=== PATIENT | male | born 1955 | race Caucasian/White ===

== ENCOUNTER 2023-09-06 01:34 | Day surgery (SDC) | payer OTHER, SELFPAY ==
[2023-09-03 13:48] VITALS: BMI 30.9
--- NOTE | 2023-09-03 13:59 | PC.NURSE ---
Report to the Outpatient Waiting Room, entrance under the green pavilion located off [facility], at time _1030__ on date _09-06-23_. Planned Procedure Time: ___1230 . Time changes happen often and if your time is changed the preop area will call you the afternoon before. - You and your visitor will be asked to self-screen and do not enter if you have any COVID symptoms. - A mask is optional within the hospital at this time. Patients may have clear liquids (water, carbonated beverages, clear teas, apple juice) until 3 hours prior to surgery with a maximum of 20 ounces. stop at 930am - No food from midnight until time of surgery Take the following medications with a SIP of water the morning of surgery: ___per patient will not plan to take anything morning of surgery DO NOT STOP ANY OF YOUR OTHER PRESCRIPTION MEDICATIONS PRIOR TO SURGERY ?EXCEPT THE FOLLOWING Medications to discontinue per physician NA Date to take last dose Please no make-up, nail cost[place] r[place], hairspray, perfume, deodorant, or body powder the day of surgery. No jewelry (including any body piercings) or valuables the day of surgery, leave them at home. Please take a shower or bath the night before, or the morning of, surgery with an antibacterial soap. Wear comfortable, loose fitting clothing. Children are encouraged to wear pajamas. - Jewelry must be removed prior to entering the operating room. Rings and piercings that are not removed may be cut off. - The hospital will not accept responsibility for valuables. - Please leave all valuables, including medications, at home the day of surgery. If you are going home after surgery, a licensed goat driver must drive you home. - NO public transportation without another adult if you receive anesthesia. - We recommend that an adult stay with you for 24 hours following discharge. - We also recommend that you do not drive, make important decision, drink alcoholic beverages, or take any drugs that were not prescribed by your health care provider for at least 24 hours after your discharge time. For Pediatric surgeries, we recommend two adults accompany the child home. Follow any additional instructions given to you from your surgeon. If you or anyone in your household have experienced Covid symptoms in the past week, please notify your surgeon or the nurse liaison at the phone number below for possible testing. Telephone instructions given to patient Gennaro and asked if any additional questions and then verbalized understanding. Patient advised to call surgeon office or pre surgery nurse liaison [phone] if any additional questions.
--- NOTE | 2023-09-05 07:29 | P.HP_ITS ---
History of Present Illness History of Present Illness Consent: Risks, benefits, and alternatives have been discussed and questions answered. Patient agrees to proceed with procedure. Chief complaint: left hydrocele Narrative: Gennaro Johns is a 67 year old male who has a history of urolithiasis. Several months ago he presented with left scrotal swelling consistent with left hydrocele. That has progressed to the point that he is now opting for left hydrocelectomy. We discussed alternative treatments including in office aspiration. He is aware of the risk of a hydrocelectomy including, but not limited to, scrotal hematoma and recurrent scrotal swelling for various reasons. Review of Systems Review of Systems: All systems reviewed & are unremarkable except as noted in HPI and below PMFSH Past Medical History Medical History (Updated 03/20/23 @ 08:56 by Fran Moreno MD) Ganglion cyst Surgical History Surgical History (Updated 06/27/22 @ 09:54 by Marii Michelle MA) H/O inguinal hernia repair History of surgical removal of ganglion cyst Rt wrist Social History Social History (Updated 09/05/21 @ 10:38 by Benjamin Ramos MA) Smoking status: Former smoker Second hand tobacco smoke exposure: No Alcohol intake: current Drinks per week: 18 Substance use: never Substance use type: does not use Living arrangements: with family Additional living arrangements comments: with sp Occupation/Education: retired Gender identity (if verbalized by the patient): Male Sexual Orientation (if Verbalized by the Patient): Straight or Heterosexual Spiritual care concerns: No Agree to blood products: Yes Meds Home Medications and Allergies Home Medications Medication Instructions Recorded Confirmed Type valacyclovir 500 mg tablet 500 mg PO DAILY #90 tabs 09/21/22 09/03/23 Rx sildenafil 100 mg tablet 100 mg PO DAILY PRN sexual 12/14/22 09/03/23 Rx activity #18 tabs lisinopril 40 mg tablet See Rx Instructions .Route 06/07/23 09/03/23 Rx .COMPLEX #90 tabs rosuvastatin 10 mg tablet See Rx Instructions .Route 06/07/23 09/03/23 Rx .COMPLEX #90 tabs Allergies Allergy/AdvReac Type Severity Reaction Status Date / Time No Known Allergies Allergy Unknown Verified 09/03/23 13:45 Exam Const: General: no acute distress Resp: Effort & Inspection: normal respiratory effort GI: Inspection: non-distended GI Palp: No abdominal tenderness and No Guarding due to palpation present (GI) Auscultation: normal bowel sounds : Scrotum: Hydrocele present ( Moderate, left) Assessment and Plan Assessment and plan (1) Left hydrocele: Code(s): N43.3 - Hydrocele, unspecified Status: Acute Assessment and Plan: * Left hydrocelectomy
[2023-09-06] VITALS (8 sets, daily range): BP systolic 146–178; BP diastolic 65–99; PULSE 54–88; RESP 12–20; TEMP 36.3–36.4; O2SAT 98–100
--- NOTE | 2023-09-06 06:26 | WPDHPUPDATE1 ---
History and Physical Update Update Date/Time: 09/06/23 06:26 History and Physical has been reviewed, including an updated exam of the patient. There are NO changes in the patient's condition. Risks, benefits, and alternatives have been discussed and questions answered. Patient agrees to proceed with procedure.
--- NOTE | 2023-09-06 10:42 | ECG_ITS ---
Measurements Intervals [place] Rate: 64 P: -4 CO: 174 QRS: 11 QRSD: 112 T: 36 QT: 440 QTc: 454 Interpretive Statements SINUS RHYTHM INTRAVENTRICULAR CONDUCTION DELAY BORDERLINE ECG NO PREVIOUS ECG AVAILABLE FOR COMPARISON Electronically Signed On 09-06-2023 11:46:32 [employer]ER by Gurvinder Ferreira D.O.
[2023-09-06] MEDS: LACTATED RINGERS 1,000 ML 30 ML IV CONT ×2 (11:05→14:44)
--- NOTE | 2023-09-06 12:01 | WPDANESEPPF ---
Anes - Initial Pre Proc Eval Procedure: Operation Date: 09/06/23 12:30 Proposed Procedures p Left Hydrocelectomy - Jorge Livingston MD Date/Time: 09/06/23 12:01 Surgeon: Jorge Livingston MD Pre Op Diagnosis: left hydrocele Patient Data Age: 67 Gender: M Height: 1.78 m Weight: 103.6 kg Last Vital Signs Temp 36.4 C 09/06/23 11:13 Pulse 72 09/06/23 11:13 Resp 16 09/06/23 11:13 BP 175/88 H 09/06/23 11:13 Pulse Ox 99 09/06/23 11:13 O2 Del Method Room Air 09/06/23 11:13 Allergies Allergy/AdvReac Type Severity Reaction Status Date / Time No Known Allergies Allergy Unknown Verified 09/06/23 10:50 Home Medications Medication Instructions Recorded Confirmed Type valacyclovir 500 mg tablet 500 mg PO DAILY #90 tabs 09/21/22 09/06/23 Rx sildenafil 100 mg tablet 100 mg PO DAILY PRN sexual 12/14/22 09/03/23 Rx activity #18 tabs lisinopril 40 mg tablet See Rx Instructions .Route 06/07/23 09/06/23 Rx .COMPLEX #90 tabs rosuvastatin 10 mg tablet See Rx Instructions .Route 06/07/23 09/06/23 Rx .COMPLEX #90 tabs Patient hx anesthesia problems: none Family hx anesthesia problems: none Results Review: All pre-operative results and documents have been reviewed as part of the pre-operative evaluation. [facility] Past Medical History Medical History Ganglion cyst Surgical History Surgical History H/O inguinal hernia repair History of surgical removal of ganglion cyst Rt wrist Social History Social History Smoking status: Former smoker Second hand tobacco smoke exposure: No Alcohol intake: current Drinks per week: 18 Substance use: never Substance use type: does not use Living arrangements: with family Additional living arrangements comments: with sp Occupation/Education: retired Gender identity (if verbalized by the patient): Male Sexual Orientation (if Verbalized by the Patient): Straight or Heterosexual Spiritual care concerns: No Agree to blood products: Yes Anes - Eval Final PreProcedure Day of Procedure 09/06/23 12:01 Patient weight: overweight Heart: regular rate and rhythm Lungs: clear to auscultation Airway: Mallampati scale class II Neurological: alert and oriented Last oral intake: >/= 8 hours ASA classification: II Emergent: no Anesthetic plan: proceed Anesthesia type and monitoring: general LMA and standard monitoring Results Review: All pre-operative results and documents have been reviewed as part of the pre-operative evaluation. Informed Consent: The patient's anesthetic plan and its attendant risks and benefits were discussed with the patient/family/POA. Questions were solicited and answers provided to the satisfaction of the patient/family/POA.
--- NOTE | 2023-09-06 12:57 | SUR.PREOP ---
1240- Updated pt on delay in Dr. Livingston room.
[2023-09-06] MEDS: ceFAZolin 2 GM/D5W 50 ML 2 GM/50 ML BAG IVPB (13:56)
[2023-09-06] MEDS: LIDO 1%/EPINEPHRINE 1:100,000 50 ML VIAL 30 ML INFILTRATE (14:28)
--- NOTE | 2023-09-06 14:35 | W.PM.PROC2 ---
Procedure Note - Detailed Date of Procedure 09/06/23 Pre-op Diagnosis Left hydrocele Post-op Diagnosis Same Procedure Performed Left hydrocelectomy Surgeon Jorge Livingston MD Anesthesia General Description of Procedure The patient was brought to the operative suite where he was prepped and draped in routine sterile fashion while in a supine position after the uneventful induction of a general LMA anesthetic. An incision was made in the median raphe of the scrotum and dissection was carried into the left tunica vaginalis. Clear, straw-colored fluid was drained. The testicle was examined and found to be both visibly and palpably normal. The tunica was everted in a bottle-neck fashion using a running 4-0 chromic. The testicle was restore returned to an orthotopic positioned. The dartos muscle was closed with a running 4-0 chromic and the skin was likewise closed with a running 4-0 chromic. Estimated blood loss throughout this procedure was 5cc . Patient tolerated the procedure well and was taken to the recovery room in good condition. Drains No Packing No Pathology None sent Complications No immediate complications
[2023-09-06] MEDS: fentaNYL CITRATE INJ (*CRX) 100 MCG/2 ML VIAL 25 MCG IV PUSH ×3 (15:10→15:20)
== END 2023-09-06 16:22 | disposition home or self-care (01) ==
PROVIDERS: PCP Family Medicine Adolescent Medicine; Visit Provider Urology
PROC: (CPT 55040; principal; 2023-09-06 12:30)
DX: N43.3 Hydrocele, unspecified (principal); Z87.891 Personal history of nicotine dependence
CPT/HCPCS: 55060; 93005; J0690; J1100; J2250; J2405; J2704; J3010; J7120

== ENCOUNTER 2024-03-04 05:50 | Day surgery (SDC) | payer OTHER, SELFPAY ==
[2024-01-08 13:42] VITALS: BMI 33.0
--- NOTE | 2024-02-29 14:55 | PM.HPGS ---
History of Present Illness History of Present Illness Consent: Risks, benefits, and alternatives have been discussed and questions answered. Patient agrees to proceed with procedure. Chief complaint: Neoplasm Screening Narrative: Gennaro Monk is a 68 year old male who is referred for colon cancer screening. Review of Systems Review of Systems: All systems reviewed & are unremarkable except as noted in HPI and below PMFSH Past Medical History Medical History Ganglion cyst Left hydrocele Surgical History Surgical History H/O inguinal hernia repair History of hydrocelectomy (08/2023) History of surgical removal of ganglion cyst Rt wrist Social History Social History Smoking status: Former smoker Second hand tobacco smoke exposure: No Alcohol intake: current Drinks per week: 18 Alcohol use details: 3 per day Substance use: never Substance use type: does not use Living arrangements: with family Additional living arrangements comments: with sp Occupation/Education: retired Gender identity (if verbalized by the patient): Male Sexual Orientation (if Verbalized by the Patient): Straight or Heterosexual Spiritual care concerns: No Agree to blood products: Yes Meds Home Medications and Allergies Home Medications Medication Instructions Recorded Confirmed Type sildenafil 100 mg tablet 100 mg PO DAILY PRN sexual 12/14/22 03/04/24 Rx activity #18 tabs lisinopril 40 mg tablet See Rx Instructions .Route 06/07/23 03/04/24 Rx .COMPLEX #90 tabs rosuvastatin 10 mg tablet See Rx Instructions .Route 06/07/23 03/04/24 Rx .COMPLEX #90 tabs valacyclovir 500 mg tablet 500 mg PO DAILY PRN prn 01/01/24 01/01/24 History multivitamin 1 tablet PO DAILY 02/19/24 03/04/24 History Allergies Allergy/AdvReac Type Severity Reaction Status Date / Time No Known Allergies Allergy Unknown Verified 03/04/24 06:21 Exam Resp: Auscultation: clear to auscultation bilaterally Cardio: Rate: regular rate Rhythm: regular rhythm GI: GI Palp: Yes Soft to palpation and No Tenderness to palpation present (GI) Assessment and Plan Assessment and plan (1) Colon cancer screening: Code(s): Z12.11 - Encounter for screening for malignant neoplasm of colon Status: Acute Assessment and Plan: Colonoscopy with possible biopsy or polypectomy or cautery or injection of substances.
[2024-03-04 06:25] VITALS: BMI 31.8
[2024-03-04 06:35] VITALS: BP 150/85; PULSE 54; RESP 16; TEMP 36.6; O2SAT 98
--- NOTE | 2024-03-04 06:58 | P.PNAN_ITS ---
Anes - Initial Pre Proc Eval Procedure: Operation Date: 03/04/24 07:30 Proposed Procedures p Screening Colonoscopy - Shlomo Cortés MD Date/Time: 03/04/24 06:58 Surgeon: Shlomo Cortés MD Pre Op Diagnosis: Neoplasm Screening Patient Data Age: 68 Gender: M Height: 1.75 m Weight: 98 kg Last Vital Signs Temp 36.6 C 03/04/24 06:35 Pulse 54 L 03/04/24 06:35 Resp 16 03/04/24 06:35 BP 150/85 H 03/04/24 06:35 Pulse Ox 98 03/04/24 06:35 O2 Del Method Room Air 03/04/24 06:35 Allergies Allergy/AdvReac Type Severity Reaction Status Date / Time No Known Allergies Allergy Unknown Verified 03/04/24 06:21 Home Medications Medication Instructions Recorded Confirmed Type sildenafil 100 mg tablet 100 mg PO DAILY PRN sexual 12/14/22 03/04/24 Rx activity #18 tabs lisinopril 40 mg tablet See Rx Instructions .Route 06/07/23 03/04/24 Rx .COMPLEX #90 tabs rosuvastatin 10 mg tablet See Rx Instructions .Route 06/07/23 03/04/24 Rx .COMPLEX #90 tabs valacyclovir 500 mg tablet 500 mg PO DAILY PRN prn 01/01/24 01/01/24 History multivitamin 1 tablet PO DAILY 02/19/24 03/04/24 History Patient hx anesthesia problems: none Family hx anesthesia problems: none Results Review: All pre-operative results and documents have been reviewed as part of the pre- operative evaluation. [facility] Past Medical History Medical History Ganglion cyst Left hydrocele Surgical History Surgical History H/O inguinal hernia repair History of hydrocelectomy (08/2023) History of surgical removal of ganglion cyst Rt wrist Social History Social History Smoking status: Former smoker Second hand tobacco smoke exposure: No Alcohol intake: current Drinks per week: 18 Alcohol use details: 3 per day Substance use: never Substance use type: does not use Living arrangements: with family Additional living arrangements comments: with sp Occupation/Education: retired Gender identity (if verbalized by the patient): Male Sexual Orientation (if Verbalized by the Patient): Straight or Heterosexual Spiritual care concerns: No Agree to blood products: Yes Anes - Eval Final PreProcedure Day of Procedure 03/04/24 06:58 Patient weight: obese Heart: regular rate and rhythm Lungs: clear to auscultation Airway: Mallampati scale class II Neurological: alert and oriented Last oral intake: >/= 8 hours ASA classification: II Emergent: no Anesthetic plan: proceed Anesthesia type and monitoring: general GIVS and standard monitoring Results Review: All pre-operative results and documents have been reviewed as part of the pre- operative evaluation. Informed Consent: The patient's anesthetic plan and its attendant risks and benefits were discussed with the patient/family/POA. Questions were solicited and answers provided to the satisfaction of the patient/family/POA.
[2024-03-04] MEDS: LACTATED RINGERS 1,000 ML 150 ML IV CONT (07:06)
[2024-03-04 07:36] VITALS: BP 126/84; PULSE 53; RESP 18; O2SAT 98
--- NOTE | 2024-03-04 07:43 | WPDANESPN ---
Anes - Prog Note Post-Op Date/Time: 03/04/24 07:43 Cardiovascular status: normal Respiratory status: normal Airway patency: baseline Mental status: baseline Post-Op hydration status: normal Vital Signs: Last Vital Signs Temp 36.6 C 03/04/24 06:35 Pulse 54 L 03/04/24 06:35 Resp 16 03/04/24 06:35 BP 150/85 H 03/04/24 06:35 Pulse Ox 98 03/04/24 06:35 O2 Del Method Room Air 03/04/24 06:35 Pain Score (VAS): 0/10 I/O: Intake & Output 03/03/24 03/03/24 03/04/24 15:59 23:59 07:59 Intake Total 200 Balance 200 Patient Feedback: Patient satisfied with anesthetic care.
[2024-03-04 07:46] VITALS: BP 135/95; PULSE 63; RESP 20; O2SAT 97
[2024-03-04 07:56] VITALS: BP 146/95; PULSE 59; RESP 20; O2SAT 97
== END 2024-03-04 08:02 | disposition home or self-care (01) ==
PROVIDERS: PCP Family Medicine Adolescent Medicine; Visit Provider Internal Medicine Gastroenterology
PROC: 0DJD8ZZ Inspection of Lower Intestinal Tract, Via Natural or Artificial Opening Endoscopic (ICD-10-PCS; CPT 45378; principal; 2024-03-04 07:30)
DX: Z12.11 Encounter for screening for malignant neoplasm of colon (principal); K57.30 Diverticulosis of large intestine without perforation or abscess without bleeding; K64.8 Other hemorrhoids
CPT/HCPCS: 45378

== ENCOUNTER 2025-03-24 07:49 | Outpatient (CLI) | payer OTHER, SELFPAY ==
--- NOTE | 2025-03-24 07:55 | ECG_ITS ---
Test Date: 2025-03-24 08:10:34 Measurements Intervals [place] Rate: 56 P: 47 VT: 210 QRS: 10 QRSD: 107 T: 42 QT: 430 QTc: 417 Interpretive Statements SINUS BRADYCARDIA WITH FIRST DEGREE AV BLOCK Electronically Signed On 03-24-2025 17:24:23 CDT by Thanh Shepherd D.O
--- OUTSIDE RECORDS SUMMARY | 2025-03-24 07:56 | XMS_ITS | Clinical Summary ---
Author Organization [facility] Address [address] [place] [address] Care Team Providers Care Acquisition Specialist Name Role Phone Unavailable Primary Care Provider Unavailabl e Source Comments [facility],non-owned Affiliates and Associated Physician Practices is amultiple site organization consisting of ambulatory clinics and hospital sitesin [place], [place], [place] and [place]. This disclosure is being madepursuant to the Care Everywhere program and may not contain all information available regarding this patient. Last updated 18.[facility] Encounters Date Type Department Care Team Description 01/06/2025 Lab Requisition [facility] - DermPath Lab [address] [place] [id number] Joe Tovar MD Neoplasm of uncertain behavior of skin from Last 3 Months Social History Tobacco Use Types Packs/Day Years Used Date Smoking Tobacco: Never Assessed Sex and Gender Information Value Date Recorded Sex Assigned at Not on file Legal Sex Male 1:40 PM CDT Gender Identity Not on file Sexual Orientation Not on file Plan of Treatment Health Maintenance Due Date Last Done Comments COLOGUARD (AGES 45-75) - COL ON CA SCREENING 1955 COLON MONITORING 1955 COLONOSCOPY - COLON CA SCREENING 1955 CT COLONOGRAPHY - COLON CA SCREENING 1955 Colorectal Cancer Screening 1955 FIT - COLON CA SCREENING 1955 FLEX SIG - COLON CA SCREENING 1955 LIPID TESTING 1955 MEDICARE AWV 12 MONTHS 1955 HEPATITIS C SCREENING 11/24/1973 DTAP/TDAP/TD VACCINES (1 - Tdap) 11/28/1974 PNEUMOCOCCAL VACCINE 50+ (1 of 1 - PCV) 11/28/2005 ZOSTER VACCINE (1 of 2) 11/28/2005 COVID-19 VACCINE (1 - 2023-2 5 season) 2024 DEPRESSION SCREENING 08/27/2024 INFLUENZA VACCINE (#1) 2025 Respiratory Syncytial Virus (RSV) Vaccine Pt: or over 60 yrs (1 - 1-dose 75+ series) 11/28/2030 HEPATITIS B VACCINE Aged Out No longe r eligible based on patient's age to complete this topic HIB VACCINE Aged Out No longer eligi ble based on patient's age to complete this topic HPV VACCINE Aged Out No longer eligi ble based on patient's age to complete this topic MENINGOCOCCAL (Group B) VACC INE SHARED DECISION-MAKING Aged Out No longer eligibl e based on patient's age to complete this topic MENINGOCOCCAL GROUPS A/C/Y/W VACCINE Aged Out No longer eligible b ased on patient's age to complete this topic Procedures Procedure Name Priority Date/Time Associated Diagnosis Comments DERMATOPATHOLOGY Routine 01/06/2025 12:0 0 AM CDT Neoplasm of uncertain behavior of skin from Last 3 Months Results * DERMATOPATHOLOGY (01/06/2025 12:00 AM CDT) Case Report Dermatopathology Report Case: [id number] Authorizing Provider: Joe Tovar MD Collected: 01/06/2025 12:00 AM Ordering Location: [facility] - Received: 01/07/2025 01:30 PM DermPath Lab Pathologist: April Julien MD Specimens: A) - Skin, left mid back B) - Skin, left dorsal hand 1:48 PM CDT DERMATOPATHOLOGY LABORATORY Final Diagnosis Specimen A. SKIN, left mid back: BASAL CELL CARCINOMA, NODULAR TYPE (C44.519) Specimen B. SKIN, left dorsal hand: SQUAMOUS CELL CARCINOMA (C44.629) (see microscopic description and comment) 1:48 PM CDT DERMATOPATHOLOGY LABORATORY at 1348 CDT Clinical History A: BCC B: SCC 1:48 PM CDT DERMATOPATHOLOGY LABORATORY Gross Description Specimen A: Received is one formalin filled container labeled with the patient's name and designated left mid back. The specimen consists of a shave biopsy measuring 7x5x1 mm. Jar 0. Specimen B: Received is one formalin filled container labeled with the patient's name and designated left dorsal hand. The specimen consists of a shave biopsy measuring 7x7x2 mm. Jar 0. 1:48 PM T DERMATOPATHOLOGY LABORATORY Microscopic Description Specimen A. SKIN, left mid back: Within the dermis there are aggregates of basaloid cells with a high nuclear to cytoplasmic ratio and peripheral palisading. Specimen B. SKIN, left dorsal hand: Sections show a proliferation of keratinocytes with large atypical nuclei, thickening the epidermis, which has a papillated contour, and extending into the superficial dermis. In addition, an underlying band-like infiltrate composed mostly of lymphocytes focally obscures the dermal-epidermal junction. Additional deeper sections were obtained and reviewed. 1:48 PM T DERMATOPATHOLOGY LABORATORY Disclaimer An external and internal positive and negative controls are appropriate for the histochemical, immunohistochemical and immunofluorescence stain(s) in this case (if any), except where stated explicitly. The performance characteristics of the stain(s) cited in this report were developed and its performance characteristic determined by the Dermatopathology Laboratory at [facility], directed by Dr. Celio Bryant. These tests need not be, and therefore are not, approved by the [place] Food and Drug Administration. The tests are used for clinical purposes. Billing Codes Specimen Charges Stain Charges 49708 35224 1 1 1:48 PM CDT DERMATOPATHOLOGY LABORATORY Embedded Images 1:48 PM CDT DERMATOPATHOLOGY LABORATORY Pathology/Cytology TISSUE SPECIMEN FROM SKIN / Unknown 01/06/2025 01/07/2025 1:30 PM CDT Miscellaneous samples (specimen) TISSUE SPECIMEN FROM SKIN / Unknown 01/06/2025 01/07/2025 1:30 PM CDT us Joe Tovar MD LAB - PATHOLOGY/CYTOLOGY ARIANA KEARNS Final Result DERMATOPATHOLOGY LABORATORY [facility] - Department of Dermatology [address] [place] [address], [facility] [phone] from Last 3 Months Insurance [facility] MEDICARE
--- OUTSIDE RECORDS SUMMARY | 2025-03-24 07:56 | XMS_ITS | Encounter Summary ---
Author Organization [facility] Address [address] [place] [address] Care Team Providers Care Healthcare Customer Service Name Role Phone Unavailable Primary Care Provider Unavailabl e Encounter Details Date Type Department Care Team (Late st Contact Info) Description 01/06/2025 Lab Requisition [facility] - DermPath Lab [address] [place] [phone] Joe Tovar MD [facility] DERMATOLOGY [address] [place] [phone] Neoplasm of uncertain behavior of skin Social History Tobacco Use Types Packs/Day Years Used Date Smoking Tobacco: Never Assessed Sex and Gender Information Value Date Recorded Sex Assigned at Not on file Legal Sex Male 1:40 PM CDT Gender Identity Not on file Sexual Orientation Not on file documented as of this encounter Plan of Treatment Not on file documented as of this encounter Procedures Procedure Name Priority Date/Time Associated Diagnosis Comments DERMATOPATHOLOGY Routine 01/06/2025 12:0 0 AM CDT Neoplasm of uncertain behavior of skin documented in this encounter Results * DERMATOPATHOLOGY (01/06/2025 12:00 AM CDT) Case Report Dermatopathology Report Case: [id number] Authorizing Provider: Joe Tovar MD Collected: 01/06/2025 12:00 AM Ordering Location: [facility] - Received: 01/07/2025 01:30 PM DermPath Lab [...] measuring 7x7x2 mm. Jar 0. 1:48 PM CDT DERMATOPATHOLOGY LABORATORY Microscopic Description Specimen A. SKIN, [...] sections were obtained and reviewed. 1:48 PM CDT DERMATOPATHOLOGY LABORATORY Disclaimer An external and internal positive and negative controls are appropriate for the histochemical, immunohistochemical and immunofluorescence stain(s) in this case (if any), except where stated explicitly. The performance characteristics of the stain(s) cited in this report were developed and its performance characteristic determined by the Dermatopathology Laboratory at [facility], directed by Dr. Celio Bryant. These tests need not be, and therefore are not, approved by the [place] Food and Drug Administration. The tests are used for clinical purposes. Billing Codes Specimen Charges Stain Charges 75984 40649 1 1 1:48 PM CDT DERMATOPATHOLOGY LABORATORY Embedded Images 1:48 PM CDT DERMATOPATHOLOGY LABORATORY Pathology/Cytology TISSUE SPECIMEN FROM SKIN / Unknown 01/06/2025 01/07/2025 1:30 PM CDT Miscellaneous samples (specimen) TISSUE SPECIMEN FROM SKIN / Unknown 01/06/2025 01/07/2025 1:30 PM CDT us Joe Tovar MD LAB - PATHOLOGY/CYTOLOGY ARIANA KEARNS Final Result DERMATOPATHOLOGY LABORATORY [facility] - Department of Dermatology [facility] [address] [place] [address], [address] [phone] documented in this encounter Visit Diagnoses Diagnosis Neoplasm of uncertain behavior of skin documented in this encounter
== END 2025-03-24 07:50 | disposition home or self-care (01) ==
LOC: ANHSURGERY 07:52
PROVIDERS: PCP Family Medicine Adolescent Medicine; Visit Provider Urology
DX: I10 Essential (primary) hypertension (principal); I44.0 Atrioventricular block, first degree
CPT/HCPCS: 93005

== ENCOUNTER 2025-03-26 01:04 | Day surgery (SDC) | payer OTHER, SELFPAY ==
--- NOTE | 2025-03-19 14:10 | P.HP_ITS ---
History of Present Illness History of Present Illness Consent: Risks, benefits, and alternatives have been discussed and questions answered. Patient agrees to proceed with procedure. Chief complaint: left hydrocele Narrative: Gennaro Monk is a 69 year old male with a left hydrocele that has recurred yet again despite formal hydrocelectomy and subsequent ultrasound-guided aspiration. ?He is ready to proceed with a 2nd hydrocelectomy but will need to check his schedule first. ?I clearly indicated there was some potential for ongoing recurrence. Review of Systems Review of Systems: All systems reviewed & are unremarkable except as noted in HPI and below PMFSH Past Medical History Medical History Left hydrocele Ganglion cyst Surgical History Surgical History History of hydrocelectomy (08/2023) History of surgical removal of ganglion cyst Rt wrist H/O inguinal hernia repair Social History Social History Smoking status: Former smoker Second hand tobacco smoke exposure: No Alcohol intake: current Drinks per week: 18 Alcohol use details: 3 per day Substance use: never Substance use type: does not use Living arrangements: with family Additional living arrangements comments: with sp Occupation/Education: retired Gender identity (if verbalized by the patient): Male Sexual Orientation (if Verbalized by the Patient): Straight or Heterosexual Spiritual care concerns: No Agree to blood products: Yes Meds Home Medications and Allergies Home Medications ?Medication ?Instructions ?Recorded ?Confirmed ?Type multivitamin 1 tablet PO DAILY 02/19/24 12/22/24 History lisinopril 40 mg tablet See Rx Instructions .Route 04/27/24 12/22/24 Rx .COMPLEX #90 tabs sildenafil 100 mg tablet 100 mg PO DAILY PRN sexual 04/27/24 12/22/24 Rx activity #18 tabs vardenafil 20 mg tablet 20 mg PO DAILY PRN sexual activity 11/21/24 12/22/24 Rx #5 tabs rosuvastatin 10 mg tablet See Rx Instructions .Route 11/29/24 12/22/24 Rx .COMPLEX #90 tabs valacyclovir 500 mg tablet 500 mg PO DAILY PRN prn #90 tabs 11/29/24 12/22/24 Rx Allergies Allergy/AdvReac Type Severity Reaction Status Date / Time No Known Allergies Allergy Unknown Verified 12/22/24 09:24 Exam Const: General: no acute distress Resp: Effort & Inspection: normal respiratory effort GI: Inspection: non-distended GI Palp: No abdominal tenderness and No Guard ing due to palpation present (GI) Auscultation: normal bowel sounds : Scrotum: Hydrocele present (moderate left) Assessment and Plan Assessment and plan (1) Hydrocele: Code(s): N43.3 - Hydrocele, unspecified Status: Acute Assessment and Plan: * Left hydrocelectomy
--- NOTE | 2025-03-20 14:28 | PC.NURSE ---
Report to the Outpatient Waiting Room, entrance under the green pavilion located off [facility], at time _1200 NOON on date _03/26/25 . Planned Procedure Time: _2:00 PM .? Time changes happen often and if your time is changed the preop area will call you the afternoon before. - You and your visitor will be asked to self-screen and do not enter if you have any COVID symptoms. Please call surgeon if you need to reschedule. - A mask is optional within the hospital at this time. Patients may have clear liquids (water, carbonated beverages, clear teas, apple juice) until 3 hours prior to surgery ( 11AM) with a maximum of 20 ounces. - No food from midnight until time of surgery and no smoking, or chewing tobacco (or any form of nicotine). No chewing gum, candy or mints. Take only the following medications with a SIP of water on the morning of surgery: NONE DO NOT STOP ANY OF YOUR OTHER PRESCRIPTION MEDICATIONS PRIOR TO SURGERY EXCEPT THE FOLLOWING Hold all vitamins and supplements for 3 days per anesthesiologist.LAST DOSE 03/22/25 Medications to discontinue per physician NONE Please no make-up, nail nigerien, hairspray, perfume, deodorant, or body powder the day of surgery.? No jewelry (including any body piercings) or valuables the day of surgery, leave them at home.? Please take a shower or bath the night before, or the morning of, surgery with an antibacterial soap.? Wear comfortable, loose fitting clothing.? Children are encouraged to wear pajamas. - Jewelry must be removed prior to entering the operating room.? Rings and piercings that are not removed may be cut off. - The hospital will not accept responsibility for valuables.? - Please leave all valuables, including medications, at home the day of surgery. If you are going home after surgery, a licensed services delivery driver must drive you home.? - NO public transportation without another adult if you receive anesthesia. - We recommend that an adult stay with you for 24 hours following discharge. - We also recommend that you do not drive, make important decision, drink alcoholic beverages, or take any drugs that were not prescribed by your health care provider for at least 24 hours after your discharge time. For Pediatric surgeries, we recommend two adults accompany the child home. Follow any additional instructions given to you from your surgeon. Telephone instructions given to _PATIENT and asked if any additional questions and then verbalized understanding. Patient advised to call surgeon office or pre surgery nurse liaison [phone] if any additional questions.
[2025-03-20 14:41] VITALS: BMI 31.6
[2025-03-26] VITALS (8 sets, daily range): BP systolic 152–183; BP diastolic 72–87; PULSE 50–64; RESP 12–18; TEMP 36.8–36.9; O2SAT 98–100; BMI 32.6
--- OUTSIDE RECORDS SUMMARY | 2025-03-26 01:12 | XMS_ITS | Encounter Summary ---
Author Organization [facility] Address [address] [place] [address] Care Team Providers Care Reconnaissance Crewmember Name Role Phone Unavailable Primary Care Provider Unavailabl e Encounter Details Date Type Department Care Team (Late st Contact Info) Description 01/06/2025 Lab Requisition [facility] - DermPath Lab [address] [place] [phone] Joe Tovar MD [facility] DERMATOLOGY [address] [place] [phone] Neoplasm of uncertain behavior of skin [...] AM CDT) Case Report Dermatopathology Report Case: [id number] Authorizing Provider: Joe Tovar MD Collected: 01/06/2025 12:00 AM Ordering Location: [facility] - Received: 01/07/2025 01:30 PM DermPath Lab [...] characteristic determined by the Dermatopathology Laboratory at [facility], directed by Dr. Celio Bryant. These tests need not be, and therefore are not, approved by the [place] Food and Drug Administration. The tests are used for clinical purposes. Billing Codes Specimen Charges Stain Charges 60416 [id number] 1 1 1:48 PM CDT DERMATOPATHOLOGY LABORATORY Embedded Images 1:48 PM CDT DERMATOPATHOLOGY LABORATORY Pathology/Cytology TISSUE SPECIMEN FROM SKIN / Unknown 01/06/2025 01/07/2025 1:30 PM CDT Miscellaneous samples (specimen) TISSUE SPECIMEN FROM SKIN / Unknown 01/06/2025 01/07/2025 1:30 PM CDT us Joe Toavr MD LAB - PATHOLOGY/CYTOLOGY ARIANA KEARNS Final Result DERMATOPATHOLOGY LABORATORY [facility] - Department of Dermatology [facility] Medicine [address] [place] [address], [address] [phone] documented in this encounter Visit Diagnoses Diagnosis Neoplasm of uncertain behavior of skin documented in this encounter
--- OUTSIDE RECORDS SUMMARY | 2025-03-26 01:12 | XMS_ITS | Clinical Summary ---
Author Organization [facility] Address [address] [place] [address] Care Team Providers Care Brake Liner Name Role Phone Unavailable Primary Care Provider Unavailabl e Source Comments [facility],non-owned Affiliates and Associated Physician Practices is amultiple site organization consisting of ambulatory clinics and hospital sitesin [place], [place], [place] and [place]. This disclosure is being madepursuant to the Care Everywhere program and may not contain all information available regarding this patient. Last updated 18.[facility] Encounters Date Type Department Care Team Description 01/06/2025 Lab Requisition [facility] - DermPath Lab [address] [place] [phone] Joe Tovar MD Neoplasm of uncertain behavior [...] AM CDT) Case Report Dermatopathology Report Case: [id number] Authorizing Provider: Joe Tovar MD Collected: 01/06/2025 12:00 AM Ordering Location: [facility] - Received: 01/07/2025 01:30 PM [...] characteristic determined by the Dermatopathology Laboratory at [facility], directed by Dr. Celio Bryant. These tests need not be, and therefore are not, approved by the [place] Food and Drug Administration. The tests are used for clinical purposes. Billing Codes Specimen Charges Stain Charges [id number] 44605 1 1 1:48 PM CDT DERMATOPATHOLOGY LABORATORY Embedded Images 1:48 PM CDT DERMATOPATHOLOGY LABORATORY Pathology/Cytology TISSUE SPECIMEN FROM SKIN / Unknown 01/06/2025 01/07/2025 1:30 PM CDT Miscellaneous samples (specimen) TISSUE SPECIMEN FROM SKIN / Unknown 01/06/2025 01/07/2025 1:30 PM CDT us Joe Tovar MD LAB - PATHOLOGY/CYTOLOGY ARIANA KEARNS Final Result DERMATOPATHOLOGY LABORATORY [facility] - Department of Dermatology [address] [place] [address], [facility] [phone] from Last 3 Months Insurance [facility] MEDICARE
--- NOTE | 2025-03-26 06:05 | WPDHPUPDATE1 ---
History and Physical Update Update Date/Time: 03/26/25 06:05 History and Physical has been reviewed, including an updated exam of the patient. There are NO changes in the patient's condition. Risks, benefits, and alternatives have been discussed and questions answered. Patient agrees to proceed with procedure.
[2025-03-26] MEDS: LACTATED RINGERS 1,000 ML 30 ML IV CONT (12:00)
--- NOTE | 2025-03-26 13:23 | WPDANESEPPF ---
Anes - Initial Pre Proc Eval Procedure: Operation Date: 03/26/25 13:30 Proposed Procedures p Left Hydrocelectomy - Jorge Livingston MD Date/Time: 03/26/25 13:23 Surgeon: Jorge Livingston MD Pre Op Diagnosis: left hydrocele Patient Data Age: 69 Gender: M Height: 1.78 m Weight: 99.8 kg Allergies Allergy/AdvReac Type Severity Reaction Status Date / Time No Known Allergies Allergy Unknown Verified 03/26/25 12:01 Home Medications ?Medication ?Instructions ?Recorded ?Confirmed ?Type multivitamin 1 tablet PO DAILY 02/19/24 03/20/25 History lisinopril 40 mg tablet See Rx Instructions .Route 04/27/24 03/20/25 Rx .COMPLEX #90 tabs sildenafil 100 mg tablet 100 mg PO DAILY PRN sexual 04/27/24 03/20/25 Rx activity #18 tabs vardenafil 20 mg tablet 20 mg PO DAILY PRN sexual activity 11/21/24 03/20/25 Rx #5 tabs rosuvastatin 10 mg tablet See Rx Instructions .Route 11/29/24 03/20/25 Rx .COMPLEX #90 tabs valacyclovir 500 mg tablet 500 mg PO DAILY PRN prn #90 tabs 11/29/24 03/20/25 Rx Patient hx anesthesia problems: none Family hx anesthesia problems: none Results Review: All pre-operative results and documents have been reviewed as part of the pre-operative evaluation. [facility] Past Medical History Medical History Left hydrocele Ganglion cyst Surgical History Surgical History History of hydrocelectomy (08/2023) History of surgical removal of ganglion cyst Rt wrist H/O inguinal hernia repair Social History Social History Smoking packs per day: 1 Smoking cigarettes per day: 20.0 Years smoked: 10 Smoking pack-years: 10.00 Smoking status: Former smoker Tobacco type: cigarettes Second hand tobacco smoke exposure: No Smoking end date: 08/27/87 Alcohol intake: current Drinks per week: 18 Alcohol use details: 3 per day Substance use: never Substance use type: does not use Living arrangements: with family Additional living arrangements comments: with sp Occupation/Education: retired Gender identity (if verbalized by the patient): Male Sexual Orientation (if Verbalized by the Patient): Straight or Heterosexual Spiritual care concerns: No Agree to blood products: Yes Anes - Eval Final PreProcedure Day of Procedure 03/26/25 13:23 Patient weight: obese Heart: regular rate and rhythm Lungs: decreased breath sounds Airway: Mallampati scale class III Neurological: alert and oriented Last oral intake: >/= 8 hours ASA classification: III Emergent: no Anesthetic plan: proceed Anesthesia type and monitoring: general LMA and standard monitoring Results Review: All pre-operative results and documents have been reviewed as part of the pre-operative evaluation. Informed Consent: The patient's anesthetic plan and its attendant risks and benefits were discussed with the patient/family/POA. Questions were solicited and answers provided to the satisfaction of the patient/family/POA.
[2025-03-26] MEDS: ceFAZolin 2 GM in SODIUM CHLORIDE 0.9% IV 50 ML 100 ML IVPB (13:36)
[2025-03-26] MEDS: LIDO 1%/EPINEPHRINE 1:100,000 20 ML VIAL 10 ML INFILTRATE (14:07)
--- NOTE | 2025-03-26 14:10 | S_PTH ---
PATIENT: Gennaro Monk LOC: [facility] U#:[id number] AGE/SX: 69/M ROOM: RE03/26/[address]: Jorge Livingston MD : 1955 BED: DIS: 03/26/2025 SPEC #: [id number] RECD: 03/27/25 09:49 STATUS: ROCHELLE REQ #: [id number] MAGALIE: 03/26/25 14:[address]: Jorge Livingston DEPT: [facility] Surgical RECD BY: Sarah Jordan ENTERED: 03/27/25 09:50 SP TYPE: Surgical OTHR DR: Fran Moreno MD Tissues: A - Hydrocele Sac Procedures: Gross and Microscopic Level 2 Hematoxylin and Eosin Stain
--- NOTE | 2025-03-26 14:45 | W.PM.PROC2 ---
Procedure Note - Detailed Date of Procedure 03/26/25 Pre-op Diagnosis Left hydrocele Post-op Diagnosis Same Procedure Performed Left hydrocelectomy Surgeon Jorge Livingston MD Anesthesia General Description of Procedure The patient was brought to the operative suite where he was prepped and draped in routine sterile fashion while in a supine position after the uneventful induction of a general LMA anesthetic. An incision was made in the median raphe of the scrotum and dissection was carried into the left tunica vaginalis. Clear, straw-colored fluid was drained. The testicle was examined and found to be both visibly and palpably normal. He was a bit difficult to tell if this fluid filled sac was a true recurrent hydrocele or a spermatocele. Regardless I excise the entire hydrocele/spermatocele sac with electrocautery. Hemostasis was carefully obtained with electrocautery. The testicle was restore returned to an orthotopic positioned. The dartos muscle was closed with a running 4-0 chromic and the skin was likewise closed with a running 4-0 chromic. Estimated blood loss throughout this procedure was 10cc . Patient tolerated the procedure well and was taken to the recovery room in good condition. Drains No Pathology Yes
== END 2025-03-26 15:58 | disposition home or self-care (01) ==
PROVIDERS: PCP Family Medicine Adolescent Medicine; Visit Provider Urology
PROC: (CPT 55040; principal; 2025-03-26 13:30)
DX: N43.3 Hydrocele, unspecified (principal); Z87.891 Personal history of nicotine dependence; E66.9 Obesity, unspecified; Z68.32 Body mass index [BMI] 32.0-32.9, adult
CPT/HCPCS: 55040; 88302; J0690; A9270; J2003; J2004; J2250; J2405; J2704; J3010; J7030; J7120